=== PATIENT | male | born 1940 | race American Indian/Alaskan Native ===

== ENCOUNTER 2017-03-23 06:11 | Emergency (ER) | payer MEDICARE ==
[2017-03-23] MEDS ORDERED: NACL 0.9% 1000 ML 1,000 ML IV ONE (06:23)
[2017-03-23 06:42] LABS: Basophils % (Auto) 0.7 % (0.0-1.8); Eosinophils % (Auto) 0.6 % (0.0-4.3); Hematocrit 48.5 % (35.5-45.6); Hemoglobin 15.9 gm/dl (11.8-15.2); Mean Corpuscular HGB Conc 33 % (32-34); Mean Corpuscular Hemoglobin 27 pg (28-32); Mean Corpuscular Volume 83 fl (84-94); Platelet Count 170 K/mm3 (140-440); Red Blood Count 5.81 M/mm3 (3.65-5.03); Red Cell Distribution Width 16.1 % (13.2-15.2); White Blood Count 8.4 K/mm3 (4.5-11.0)
[2017-03-23 07:02] LABS: INR 1.06 (0.87-1.13)
[2017-03-23 07:03] LABS: Partial Thromboplastin Time 30.8 Sec. (24.2-36.6)
[2017-03-23] MEDS ORDERED: ZOFRAN ONE (07:27)
[2017-03-23] MEDS ORDERED: ZOFRAN IV ONE (07:27)
[2017-03-23 07:35] LABS: Anion Gap TNR mmol/L; BUN/Creatinine Ratio TNR; Blood Urea Nitrogen TNR mg/dL (9-20); Carbon Dioxide TNR mmol/L (22-30); Chloride TNR mmol/L (98-107); Potassium TNR mmol/L (3.6-5.0); Sodium TNR mmol/L (137-145)
[2017-03-23 07:36] LABS: Alanine Aminotransferase TNR units/L (7-56); Albumin TNR g/dL (3.9-5); Albumin/Globulin Ratio TNR %; Alkaline Phosphatase TNR units/L (35-129); Bilirubin,Total TNR mg/dL (0.1-1.2); Calcium TNR mg/dL (8.4-10.2); Glucose TNR mg/dL (75-100); Total Protein TNR g/dL (6.3-8.2)
[2017-03-23 08:08] LABS: Albumin 3.1 g/dL (3.9-5); Albumin/Globulin Ratio 0.5 %; Anion Gap 23 mmol/L; BUN/Creatinine Ratio 33.63; Blood Urea Nitrogen 37 mg/dL (9-20); Calcium 9.2 mg/dL (8.4-10.2); Carbon Dioxide 27 mmol/L (22-30); Chloride 92.7 mmol/L (98-107); Glucose 172 mg/dL (75-100); Sodium 135 mmol/L (137-145); Total Protein 8.8 g/dL (6.3-8.2)
[2017-03-23] MEDS ORDERED: PROTONIX IV ONE (08:15)
--- NOTE | 2017-03-23 08:23 | Emergency Department Report ---
HPI - General Chief Complaint: Altered Mental Status Time Seen by Provider: 03/23/17 07:54 - HPI HPI: Room 1 Patient is a 76-year-old male sent from the long-term with chief complaint of coffee-ground emesis. 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 Patient's states received a call this morning at 05:00 from the long-term stating that the patient had had episodes of "coffee-ground emesis. " The patient is aphasic and unable to provide a history. Location: Gastrointestinal Duration: [see above] Quality: Coffee-ground Severity: Moderate Modifying factors: [see above] Context: [see above] Mode of transportation: [not driving] ED Past Medical Hx - Past Medical History Hx CVA: Yes Hx Renal Disease: Yes (CKD 3) Hx of Cancer: Yes (prostate) Hx Psychiatric Treatment: Yes (Depression) Hx Dementia: Yes Additional medical history: Aphasia, irritable bowel syndrome - Surgical History Past Surgical History?: No Additional Surgical History: PEG placement - Family History Family history: no significant - Social History Smoking Status: Never Smoker Substance Use Type: None - Medications Home Medications: Home Medications Medication Instructions Recorded Confirmed Last Taken Type Aspirin 81 mg FEEDTUBE DAILY 03/23/17 03/23/17 Unknown History Multiple Vitamin Liq (Theragran) 5 ml FEEDTUBE DAILY 03/23/17 03/23/17 Unknown History Pantoprazole [Protonix] 40 mg PO QDAY #30 tablet 03/23/17 Unknown Rx Potassium 20 meq FEEDTUBE DAILY 03/23/17 03/23/17 Unknown History ED Review of Systems ROS: Stated complaint: VOMITING Other details as noted in HPI Comment: Unobtainable due to pts medical conditions Physical Exam - Physical Exam Vital Signs: Vital Signs 03/23/17 03/23/17 03/23/17 07:11 07:15 07:51 Temperature 97.4 F L 100.6 F H Pulse Rate 82 Respiratory 18 18 Rate Blood Pressure 109/79 Blood Pressure 109/79 [Right] O2 Sat by Pulse 92 100 Oximetry 03/23/17 08:08 Temperature 97.9 F Pulse Rate 87 Respiratory 20 Rate Blood Pressure Blood Pressure 136/88 [Right] O2 Sat by Pulse Oximetry Physical Exam: GENERAL: The patient is well-developed well-nourished male lying on stretcher not appearing to be in acute distress. [] HEENT: Normocephalic. Atraumatic. NECK: Supple. Trachea midline CHEST/LUNGS: Clear to auscultation. There is no respiratory distress noted. HEART/CARDIOVASCULAR: Regular. There is no tachycardia. There is no gallop rub or murmur. ABDOMEN: Abdomen is soft, nontender. Patient has normal bowel sounds. There is no abdominal distention. SKIN: There is no rash. There is no edema. There is no diaphoresis. NEURO: The patient is asleep. Patient is nonverbal and does not communicate at baseline MUSCULOSKELETAL: There is no evidence of acute injury. RECTAL: Guaiac negative light brown stool ED Course Vital Signs 03/23/17 03/23/17 03/23/17 07:11 07:15 07:51 Temperature 97.4 F L 100.6 F H Pulse Rate 82 Respiratory 18 18 Rate Blood Pressure 109/79 Blood Pressure 109/79 [Right] O2 Sat by Pulse 92 100 Oximetry 03/23/17 08:08 Temperature 97.9 F Pulse Rate 87 Respiratory 20 Rate Blood Pressure Blood Pressure 136/88 [Right] O2 Sat by Pulse Oximetry - Consultations Consultation #1: 03/23/17 08:[address] Montiel (gastroenterology)-labs and rectal exam were reviewed. Recommends initiating PPI and sending patient back to long-term to follow with GI as an outpatient. No need for emergent EGD 03/23/17 09:51 ED Medical Decision Making - Lab Data Result diagrams: 03/23/17 06:24 03/23/17 07:38 Laboratory Tests 03/23/17 03/23/17 03/23/17 06:24 06:24 06:24 WBC 8.4 RBC 5.81 H Hgb 15.9 H Hct 48.5 H MCV 83 L MCH 27 L MCHC 33 RDW 16.1 H Plt Count 170 Lymph % (Auto) 13.5 [place] % (Auto) 12.9 H Eos % (Auto) 0.6 Baso % (Auto) 0.7 Lymph # 1.1 L [place] # 1.1 H Eos # 0.0 Baso # 0.1 Seg Neutrophils % 72.3 H Seg Neutrophils # 6.1 PT 14.3 INR 1.06 APTT 30.8 Sodium TNR Potassium TNR Chloride TNR Carbon Dioxide TNR Anion Gap TNR BUN TNR Creatinine TNR Estimated GFR TNR BUN/Creatinine Ratio TNR Glucose TNR Calcium TNR Total Bilirubin TNR AST TNR ALT TNR Alkaline Phosphatase TNR Total Protein TNR Albumin TNR Albumin/Globulin Ratio TNR Lipase TNR Blood Type Antibody Screen 03/23/17 03/23/17 06:24 07:38 WBC RBC Hgb Hct MCV MCH MCHC RDW Plt Count Lymph % (Auto) [place] % (Auto) Eos % (Auto) Baso % (Auto) Lymph # [place] # Eos # Baso # Seg Neutrophils % Seg Neutrophils # PT INR APTT Sodium 135 L Potassium Chloride 92.7 L Carbon Dioxide 27 Anion Gap 23 BUN 37 H Creatinine 1.1 Estimated GFR > 60 BUN/Creatinine Ratio 33.63 Glucose 172 H Calcium 9.2 Total Bilirubin 0.80 AST ALT Alkaline Phosphatase Total Protein 8.8 H Albumin 3.1 L Albumin/Globulin Ratio 0.5 Lipase Blood Type O POSITIVE Antibody Screen Negative Laboratory Tests 03/23/17 03/23/17 03/23/17 06:24 06:24 06:24 WBC 8.4 RBC 5.81 H Hgb 15.9 H Hct 48.5 H MCV 83 L MCH 27 L MCHC 33 RDW 16.1 H Plt Count 170 Lymph % (Auto) 13.5 [place] % (Auto) 12.9 H Eos % (Auto) 0.6 Baso % (Auto) 0.7 Lymph # 1.1 L [place] # 1.1 H Eos # 0.0 Baso # 0.1 Seg Neutrophils % 72.3 H Seg Neutrophils # 6.1 PT 14.3 INR 1.06 APTT 30.8 Sodium TNR Potassium TNR Chloride TNR Carbon Dioxide TNR Anion Gap TNR BUN TNR Creatinine TNR Estimated GFR TNR BUN/Creatinine Ratio TNR Glucose TNR Calcium TNR Total Bilirubin TNR AST TNR ALT TNR Alkaline Phosphatase TNR Total Protein TNR Albumin TNR Albumin/Globulin Ratio TNR Lipase 26 Urine Color Urine Turbidity Urine pH Ur Specific [place] Urine Protein Urine Glucose (UA) Urine Ketones Urine Blood Urine Nitrite Urine Bilirubin Urine Urobilinogen Ur Leukocyte Esterase Urine WBC (Auto) Urine RBC (Auto) Urine Bacteria (Auto) Triple Phos Crystals Urine Mucus Blood Type Antibody Screen 03/23/17 03/23/17 03/23/17 06:24 07:38 09:00 WBC RBC Hgb Hct MCV MCH MCHC RDW Plt Count Lymph % (Auto) [place] % (Auto) Eos % (Auto) Baso % (Auto) Lymph # [place] # Eos # Baso # Seg Neutrophils % Seg Neutrophils # PT INR APTT Sodium 135 L Potassium 5.5 H Chloride 92.7 L Carbon Dioxide 27 Anion Gap 23 BUN 37 H Creatinine 1.1 Estimated GFR > 60 BUN/Creatinine Ratio 33.63 Glucose 172 H Calcium 9.2 Total Bilirubin 0.80 AST 72 H ALT 28 Alkaline Phosphatase 78 Total Protein 8.8 H Albumin 3.1 L Albumin/Globulin Ratio 0.5 Lipase Urine Color Yellow Urine Turbidity Turbid Urine pH 9.0 H Ur Specific [place] 1.018 Urine Protein >500 Urine Glucose (UA) Neg Urine Ketones Neg Urine Blood Neg Urine Nitrite Neg Urine Bilirubin Neg Urine Urobilinogen < 2.0 Ur Leukocyte Esterase Lg Urine WBC (Auto) 34.0 H Urine RBC (Auto) 15.0 Urine Bacteria (Auto) 4+ Triple Phos Crystals 3+ Urine Mucus 3+ Blood Type O POSITIVE Antibody Screen Negative - EKG Data -: EKG Interpreted by Al EKG shows normal: sinus rhythm Rate: normal - EKG Data When compared to previous EKG there are: previous EKG unavailable Interpretation: nonspecific ST-T wave kyle - Differential Diagnosis dehydration, gastritis, peptic ulcer disease, GI bleed Critical care attestation.: If time is entered above; I have spent that time in minutes in the direct care of this critically ill patient, excluding procedure time. ED Disposition Clinical Impression: Vomiting, UTI (urinary tract infection), Dehydration Disposition: DC-01 TO HOME OR SELFCARE Is pt being admited?: No Does the pt Need Aspirin: No Condition: Stable Additional Instructions: Return to the emergency department immediately should you develop worsening symptoms, fever, inability to tolerate food or liquid or any other concerns. Prescriptions: Pantoprazole [Protonix] 40 mg PO QDAY #30 tablet Referrals: SANTANA PETERSON MD [Primary Care Provider] - 3-5 Days MARCELO MONTIEL MD [Staff Physician] - 3-5 Days Time of Disposition: 09:50
[2017-03-23 09:21] LABS: Bacteria,Urine 4+ /HPF (Negative); Bilirubin,Urine NEG (Negative); Blood,Urine NEG (Negative); Ketones,Urine NEG (Negative); Leukocyte Esterase,Urine LG (Negative); Mucus,Urine 3+ /HPF; Nitrite,Urine NEG (Negative); Urobilinogen,Urine < 2.0 mg/dL (<2.0)
[2017-03-23 09:21] LABS: Potassium 5.5 mmol/L (3.6-5.0)
[2017-03-23 09:23] LABS: Protein,Urine >500 mg/dL (Negative)
[2017-03-23 09:33] LABS: Alanine Aminotransferase 28 units/L (7-56); Alkaline Phosphatase 78 units/L (35-129)
[2017-03-23 09:35] LABS: Lipase 26 units/L (13-60)
[2017-03-23 10:41] VITALS: BP 117/75
== END 2017-03-23 11:35 | disposition home or self-care (01) ==
LOC: ED 06:11
DX: N39.0 Urinary tract infection, site not specified (principal); E86.0 Dehydration; R11.10 Vomiting, unspecified; K58.9 Irritable bowel syndrome, unspecified; F03.90 Unspecified dementia, unspecified severity, without behavioral disturbance, psychotic disturbance, mood disturbance, and anxiety; N18.3 Chronic kidney disease, stage 3 (moderate); Z86.73 Personal history of transient ischemic attack (TIA), and cerebral infarction without residual deficits; Z79.82 Long term (current) use of aspirin
CPT/HCPCS: 36415; 80053; 81001; 82271; 83690; 85025; 85610; 85730; 86850; 86900; 86901; 93005; 93010; 96361; 96374; 96375; 99284; C9113; J2405; J7030